=== PATIENT | female | born 1995 | race Caucasian/White ===

== ENCOUNTER 2019-03-22 18:12 | Emergency (ER) | payer OTHER, SELFPAY ==
--- NOTE | 2019-03-22 18:26 | DI.RAD.S_ITS ---
PROCEDURE: XR WRIST RT MIN 3V INDICATIONS: pain, no definite injury, over lateral wrist, distal forearm TECHNIQUE: 3 views of the wrist were acquired. COMPARISON: None. FINDINGS: Bones: No fractures or dislocations. No suspicious bony lesions. Soft tissues: No suspicious soft tissue calcifications. IMPRESSION: No fracture or dislocation. Dictated by: Terri Jensen M.D. on 03/22/2019 at 20:41 Approved by: Terri Jensen M.D. on 03/22/2019 at 20:41
[2019-03-22 18:29] VITALS: BP 133/92; PULSE 97; RESP 18; TEMP 36.8; O2SAT 97; BMI 28.7
--- NOTE | 2019-03-23 00:48 | ED.UPPEXIN ---
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 She denies any direct or forceful trauma. She states that any use of her wrist exacerbates the pain. She denies numbness, tingling or weakness. She denies history of the same. MD complaint: injury to: right, forearm and wrist Onset (ago): hour(s) Other injuries: none Handedness: right Place: work Severity: moderate Relieving factors: rest Exacerbating factors: movement of extremity Context: other Associated symptoms: denies other symptoms Treatments prior to arrival: cold therapy and NSAIDS Related Data Previous Rx's Medication Instructions Recorded cyclobenzaprine 10 mg tablet 10 mg PO BEDTIME #30 tab 12/23/18 Allergies Allergy/AdvReac Type Severity Reaction Status Date / Time No Known Drug Allergies Allergy Verified 03/22/19 18:28 Review of Systems Constitutional Denies chills, Denies fever(s), Denies lethargy and Denies weakness Eyes Denies change in vision, Denies eye discharge, Denies irritation and Denies loss of vision ENT Ears, Nose, Mouth, and Throat: Denies change in voice, Denies neck pain and Denies sore throat Cardiovascular Denies chest pain, Denies irregular heart rhythm, Denies lightheadedness, Denies palpitations, Denies dyspnea, Denies dyspnea on exertion and Denies orthopnea Respiratory Denies cough, Denies dyspnea, Denies dyspnea on exertion and Denies wheezing Gastrointestinal Gastrointestinal: Denies abdominal pain, Denies change in bowel habits, Denies diarrhea, Denies nausea and Denies vomiting Genitourinary Denies hematuria, Denies flank pain, Denies urinary incontinence and Denies urinary urgency Musculoskeletal Reports limited range of motion and Denies neck pain Integumentary/Breasts Denies pruritus, Denies erythema, Denies rash and Denies wounds Neurologic Denies confusion, Denies loss of vision and Denies weakness Psychiatric Denies anxiety, Denies confusion, Denies depression, Denies homicidal ideation and Denies suicidal ideation Endocrine Denies palpitations Hematologic/Lymphatic Denies easy bruising Allergic/Immunologic Denies wheezing PFSH Social History Smoking Status: Former smoker alcohol intake: current Social History Smoking Status: Former smoker alcohol intake: current Exam Narrative Exam Narrative: GEN: AOx3 and in mild distress EYES: Pupils are equal, round, and reactive to light and accommodation. Extraoccular muscles are intact bilaterally. There is no subconjunctival hemorrhage or exudate. CHEST: Lungs are clear to auscultation bilaterally and free of wheezes, rales, or rhonchi. Heart rate is regular rhythm, there are no murmurs, clicks, rubs, or gallops. There is no chest wall tenderness. ABD: Abdomen is soft and nontender. There is no guarding or rebound. Bowel sounds are normal in all 4 quadrants. There is no mass or organomegaly. EXT: Full but painful range of motion of the patient's right wrist, flexion and extension causes pain to radiate up the ulnar aspect of the forearm along the distal third. No obvious defornmity SKIN: Warm, pink, and dry. No erythema or rash Initial Vital Signs Initial Vital Signs: Vital Signs Temperature 98.3 F 03/22/19 18:29 Pulse Rate 97 H 03/22/19 18:29 Respiratory Rate 18 03/22/19 18:29 Blood Pressure 133/92 H 03/22/19 18:29 Pulse Oximetry 97 03/22/19 18:29 Procedures Orthopedic Splinting/Casting Injury #1: Side: right Upper Extremity Injury Location: wrist Upper Extremity Immobilizer: volar splint Post splinting neuro exam: intact Post splinting vascular exam: intact Placed by: Nursing Course Orders Ordered: ED Orders 03/22/19 18:26 XR wrist RT min 3V Stat Vital Signs - 8 hr 03/22/19 18:29 Temperature 98.3 F Pulse Rate 97 H Respiratory Rate 18 Blood Pressure 133/92 H Pulse Oximetry 97 MDM - Extremity Injury (Upper) Imaging Data Wrist Xray: Radiologist's impression: [address] [address] XRay Report Signed Patient: Ivanna [facility]#: [id number] : 1995Acct:[id number] Age/Sex: 23 / FDate of Service: 03/22/19 Loc: ED Accession Number: [id number] Procedure: XR wrist RT min 3V Ordering Provider: Gonzalo Ruelas D.O. PROCEDURE: XR WRIST RT MIN 3V INDICATIONS: pain, no definite injury, over lateral wrist, distal forearm TECHNIQUE: 3 views of the wrist were acquired. COMPARISON: None. FINDINGS: Bones: No fractures or dislocations. No suspicious bony lesions. Soft tissues: No suspicious soft tissue calcifications. IMPRESSION: No fracture or dislocation. Dictated by: Terri Jensen M.D. on 03/22/2019 at 20:41 Approved by: Terri Jensen M.D. on 03/22/2019 at 20:41 Discharge Plan Departure Patient Disposition: Home Clinical Impression: Sprain and strain of wrist Discharge Date/Time: 03/22/19 19:01 Interventions: ED Discharge Assessment Last Done: 03/22/19 19:01 Instructions: DI for Wrist Sprain Activity Restrictions/Additional Instructions: *You have been diagnosed with [ Right wrist tendinopathy or sprain ] *What to do: *Take medications as directed: Tylenol or Motrin for pain *Follow up with your primary care provider in 2-3 days, call for an appointment. Let them know you were seen in the Emergency Department and that we ask that you be seen in follow up * this is likely an inflammatory condition of muscles or tendons in her wrist and forearm. It is important to avoid repetitive motions and lifting, pushing or pulling greater than 30 lb for the next 5-7 days. He will need to see your primary care provider for a full clearance to return to work *Return to ER if you should have any new, worsening or concerning symptoms, such as [ ] Prescriptions: No Action cyclobenzaprine 10 mg tablet 10 mg PO BEDTIME Qty: 30 RF: 0
== END 2019-03-22 19:01 | disposition home or self-care (01) ==
PROVIDERS: Emergency Provider Emergency Medicine
DX: S63.501A Unspecified sprain of right wrist, initial encounter (principal); Y99.0 Civilian activity done for income or pay
CPT/HCPCS: 29260; 73110; 99282; 99283

== ENCOUNTER 2019-05-14 21:54 | Emergency (ER) | payer OTHER, SELFPAY ==
[2019-05-14 22:04] VITALS: BP 112/68; PULSE 80; RESP 20; O2SAT 98
--- NOTE | 2019-05-14 22:50 | ED.DENTAL ---
HPI - Dental/Oral General Chief complaint: Dental/Oral Stated complaint: TOOTH INFECTION Time Seen by Provider: 05/14/19 22:50 Source: patient Mode of arrival: ambulatory Limitations: no limitations History of Present Illness HPI Narrative: The patient developed bleeding from the left upper gum after eating dinner, about 6:00 p.m. she had nothing for dinner that would an abrasive. She is sure she not herself with a dinner utensil. She has no dental pain now. She has had no recent dental pain. She has had no facial swelling. She has no bleeding issues. She has no medical problems. Related Data Previous Rx's Medication Instructions Recorded cyclobenzaprine 10 mg tablet 10 mg PO BEDTIME #30 tab 12/23/18 Allergies Allergy/AdvReac Type Severity Reaction Status Date / Time No Known Drug Allergies Allergy Verified 03/22/19 18:28 Review of Systems Constitutional Denies body ache(s), Denies chills and Denies fever(s) Comments: No recent illness ENT Ears, Nose, Mouth, and Throat: Denies dental pain, Denies epistaxis, Denies mouth lesions and Denies mouth pain Comments: Bleeding as described in HPI Cardiovascular Denies dyspnea Respiratory Denies dyspnea Hematologic/Lymphatic Denies easy bleeding and Denies easy bruising PFSH Medical History (Updated 05/14/19 @ 23:02 by Darwin Malcolm MD) No active medical problems (Acute) Surgical History (Updated 05/14/19 @ 23:02 by Darwin Malcolm MD) No pertinent past surgical history (Acute) Social History Smoking Status: Former smoker alcohol intake: current Social History Smoking Status: Former smoker alcohol intake: current Exam Initial Vital Signs Initial Vital Signs: Vital Signs Pulse Rate 80 05/14/19 22:04 Respiratory Rate 20 05/14/19 22:04 Blood Pressure 112/68 05/14/19 22:04 Pulse Oximetry 98 05/14/19 22:04 Const General: cooperative and well developed Nutritional Appearance: well nourished Orientation: alert, awake and oriented x3 HENMT Teeth and gingiva: dentition normal (Small abrasion on the gum above tooth 13. No dental tenderness. no edema. ), gingiva normal and no caries Throat: posterior oropharynx normal Neck Neck: No anterior neck swelling and No lymphadenopathy Skin General: no rashes or lesions noted Course Course Narrative: There is a small abrasion on the left upper gum, no significant injury seen. There is no evidence of active bleeding, or infection. Oropharynx is otherwise normal. Vital Signs - 8 hr 05/14/19 22:04 Pulse Rate 80 Respiratory Rate 20 Blood Pressure 112/68 Pulse Oximetry 98 Discharge Plan Departure Patient Disposition: Home Clinical Impression: Abrasion of gum Qualifiers: Encounter type: initial encounter Qualified Code(s): S00.512A - Abrasion of oral cavity, initial encounter Discharge Date/Time: 05/14/19 23:00 Instructions: DI for Abrasion Activity Restrictions/Additional Instructions: The visible injury is small. If there is recurrence of bleeding, apply gauze like it did previously. Return the ER if you have sustained bleeding greater than 1 hour. Prescriptions: No Action cyclobenzaprine 10 mg tablet 10 mg PO BEDTIME Qty: 30 RF: 0
== END 2019-05-14 23:00 | disposition home or self-care (01) ==
PROVIDERS: Emergency Provider Emergency Medicine
DX: S00.512A Abrasion of oral cavity, initial encounter (principal); W27.4XXA Contact with kitchen utensil, initial encounter
CPT/HCPCS: 99282

== ENCOUNTER 2019-07-31 20:57 | Emergency (ER) | payer OTHER, SELFPAY ==
[2019-07-31 21:00] VITALS: BP 138/86; PULSE 87; RESP 16; TEMP 36.5; O2SAT 99; BMI 27.4
--- NOTE | 2019-07-31 21:02 | DI.RAD.S_ITS ---
PROCEDURE: XR FOOT LT MIN 3V INDICATIONS: left foot conor TECHNIQUE: 3 views of the foot were acquired. COMPARISON: None. FINDINGS: Bones: No fractures or dislocations. No suspicious bony lesions. Soft tissues: No tibiotalar joint effusion. Achilles tendon appears normal. IMPRESSION: No acute fracture. No osseous lesion. If clinical suspicion and/or symptoms persist, further assessment with repeat plainfilms, or advanced imaging (e.g., CT, MRI, or bone scan) may be helpful for further assessment. Dictated by: Diana Dumont M.D. on 07/31/2019 at 21:33 Approved by: Diaan Dumont M.D. on 07/31/2019 at 21:33
--- NOTE | 2019-07-31 21:04 | PC.NURSE ---
pt denies specific injury
--- NOTE | 2019-07-31 21:30 | ED_ITS ---
HPI - Extremity Injury (Lower) General Chief Complaint: Extremity Injury, Lower Stated Complaint: thinks broke her left foot Time Seen by Provider: 07/31/19 21:25 Source: patient Mode of arrival: Ambulatory Limitations: no limitations History of Present Illness HPI Narrative: 24-year-old female here for evaluation of left foot/great toe injury. She states that she woke up today with hurting. She walked on it all day and now it hurts more. Has not tried anything for prior to arrival. No specific trauma. Related Data Previous Rx's Medication Instructions Recorded cyclobenzaprine 10 mg tablet 10 mg PO BEDTIME #30 tab 12/23/18 Allergies Allergy/AdvReac Type Severity Reaction Status Date / Time No Known Drug Allergies Allergy Verified 03/22/19 18:28 Review of Systems Musculoskeletal Musculoskeletal: Denies tingling Comments: Left foot/big toe pain Integumentary/Breasts Skin/Breast: Denies lesions and Denies rash Neurologic Neurologic: Denies tingling Hematologic/Lymphatic Hematologic/Lymphatic: Denies easy bleeding and Denies easy bruising Patient History Medical History (Reviewed 08/01/19 @ 01:44 PDT by Mika Bell DO) No active medical problems (Acute) Surgical History (Updated 05/14/19 @ 23:02 by Darwin Malcolm MD) No pertinent past surgical history (Acute) Social History (Reviewed 08/01/19 @ 01:44 PDT by Mika Bell DO) Smoking Status: Former smoker alcohol intake: current alcohol intake frequency: a few times a month Substance Use Type: does not use Exam Initial Vital Signs Initial Vital Signs: Vital Signs Temperature 97.7 F 07/31/19 21:00 Pulse Rate 87 07/31/19 21:00 Respiratory Rate 16 07/31/19 21:00 Blood Pressure 138/86 07/31/19 21:00 Pulse Oximetry 99 07/31/19 21:00 Const General: cooperative, comfortable and well developed HENDC Head: normal to inspection and normocephalic Resp Effort & Inspection: normal respiratory effort Cardio Pulses: dorsalis pedis present on the left Skin Lesions: no lesions Rashes: no rashes Neuro General: alert and awake Gait: normal gait Sensory Exam: no sensory deficits noted Extrem Other: She does have tenderness to palpation along the MTP joint of the right great toe. There is some mild swelling of the area. Psych Appearance: grossly normal and well kempt Course Orders Ordered: ED Orders 07/31/19 21:02 XR foot LT min 3V Stat Vital Signs Vital signs: Vital Signs - 8 hr 07/31/19 21:00 Temperature 97.7 F Pulse Rate 87 Respiratory Rate 16 Blood Pressure 138/86 Pulse Oximetry 99 MDM - Extremity Injury (Lower) Imaging Data Foot x-ray: Radiologist's impression: [address] [address] XRay Report Signed Patient: Ivanna Love MMR#: [id number] : 1995Acct:[id number] Age/Sex: 24 / FDate of Service: 07/31/19 Loc: ED Accession Number: [id number] Procedure: XR foot LT min 3V Ordering Provider: Mika Bell D.O. PROCEDURE: XR FOOT LT MIN 3V INDICATIONS: left foot conor TECHNIQUE: 3 views of the foot were acquired. COMPARISON: None. FINDINGS: Bones: No fractures or dislocations. No suspicious bony lesions. Soft tissues: No tibiotalar joint effusion. Achilles tendon appears normal. IMPRESSION: No acute fracture. No osseous lesion. If clinical suspicion and/or symptoms persist, further assessment with repeat plainfilms, or advanced imaging (e.g., CT, MRI, or bone scan) may be helpful for further assessment. Dictated by: Diana Dumont M.D. on 07/31/2019 at 21:33 Approved by: Diana Dumont M.D. on 07/31/2019 at 21:33 [facility] Narrative Medical decision making narrative: Patient is neurovascularly intact. X-ray showed no signs of fracture. Exam is not consistent with gout or septic joint or cellulitis. Patient denies any specific trauma. Will send home with crutches and a hard sole shoe for comfort. She was given return precautions and follow-up instructions. She expressed understanding agreement plan Discharge Plan Departure Patient Disposition: Home Clinical Impression: Foot pain, left Discharge Date/Time: 07/31/19 22:05 Instructions: How to Use Crutches, How To Perform RICE (Rest, Ice, Compress, Elevate) Activity Restrictions/Additional Instructions: Use the crutches in the hard sole shoe as needed. You can walk on your foot however I recommend that you use the hard sole shoe. You can take Tylenol and/or ibuprofen for any discomfort. Return to the emergency department for any new or worsening symptoms Prescriptions: No Action cyclobenzaprine 10 mg tablet 10 mg PO BEDTIME Qty: 30 RF: 0 Stand Alone Forms: Work Release Note
== END 2019-07-31 22:05 | disposition home or self-care (01) ==
PROVIDERS: Emergency Provider Emergency Medicine
DX: M79.672 Pain in left foot (principal)
CPT/HCPCS: 73630; 99282; 99283

== ENCOUNTER 2020-02-08 16:17 | Emergency (ER) | payer OTHER, SELFPAY ==
[2020-02-08 16:26] VITALS: BP 139/88; PULSE 119; RESP 22; TEMP 36.6; O2SAT 99
--- NOTE | 2020-02-08 17:33 | ED.BACK ---
HPI - Back Pain/Injury <SEGUNDO Castaneda - Last Filed: 02/08/20 21:03> General Chief Complaint: Back Pain/Injury Stated Complaint: LOW BACK PAIN Time Seen by Provider: 02/08/20 16:51 Source: patient History of Present Illness HPI Narrative: 24-year-old female presents to the emergency department complaining of left-sided back pain. 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 She states ?it felt like I back seized up ?. Patient states this has happened before in the past but was feeling better until this incident. She states the pain is worse when she make certain movements such as twisting or bending. Patient denies taking any medications for this at this time. She arrives with a form to be filled out by her work. Patient denies any numbness, tingling, fevers, chills, nausea, vomiting, diarrhea, dysuria, loss of bowel or bladder control, or any other concerns. Related Data Previous Rx's Medication Instructions Recorded cyclobenzaprine 10 mg tablet 10 mg PO BEDTIME #30 tab 12/23/18 cyclobenzaprine 10 mg PO TID PRN #14 tab 02/08/20 Allergies Allergy/AdvReac Type Severity Reaction Status Date / Time No Known Drug Allergies Allergy Verified 03/22/19 18:28 Review of Systems <SEGUNDO Castaneda - Last Filed: 02/08/20 21:03> Review of Systems Narrative: REVIEW OF SYSTEMS: GENERAL: Denies fever or chills. HENT: No head trauma. EYES: No double vision or vision loss. CARDIOVASCULAR: No chest pain or syncope. RESPIRATORY: No shortness of breath or cough. GASTROINTESTINAL: No nausea, vomiting, diarrhea, or constipation. GENITOURINARY: No flank pain or dysuria. MUSCULOSKELETAL: Complains of reports left-sided lumbar pain, see HPI. INTEGUMENTARY: No rash, lesions, or pruritus. NEURO: No numbness, tingling. Patient History <SEGUNDO Castaneda - Last Filed: 02/08/20 21:03> Medical History No active medical problems (Acute) Surgical History No pertinent past surgical history (Acute) Social History Smoking Status: Former smoker alcohol intake: current Smoking Status: Former smoker alcohol intake frequency: a few times a month Substance Use Type: does not use Exam <SEGUNDO Castaneda - Last Filed: 02/08/20 21:03> Initial Vital Signs Initial Vital Signs: Vital Signs Temperature 97.9 F 02/08/20 16:26 Pulse Rate 119 H 02/08/20 16:26 Respiratory Rate 22 02/08/20 16:26 Blood Pressure 139/88 02/08/20 16:26 Pulse Oximetry 99 02/08/20 16:26 PHYSICAL EXAMINATION: GENERAL: Well groomed, alert, and cooperative. Answers questions promptly and appropriately. Vital signs noted. HENT: Normocephalic, atraumatic. EYES: Symmetrical, sclera white, no periorbital swelling. CARDIOVASCULAR: Regular rate. RESPIRATORY: Normal respiratory rate, trachea midline, airway patent. No stridor, nasal flaring or accessory muscle use. Lungs are clear in all son. MUSCULOSKELETAL: Tenderness to left lower lumbar area which correlates with upper aspect of left gluteus ced. No spinal tenderness. Patient is equal strength to lower extremities bilaterally. Normal gait and coordination. Equal tone and mass bilaterally. EXTREMITIES: CMS intact. No pedal edema. SKIN: Warm, dry, soft, appropriate color for ethnicity. No lesions, rashes, or wounds. NEURO: Alert and Oriented X 3. No sensory deficits. PSYCH: Appropriate affect and mood. <Nohelia Acosta MD - Last Filed: 02/08/20 21:07> Initial Vital Signs Initial Vital Signs: Vital Signs Temperature 97.9 F 02/08/20 16:26 Pulse Rate 119 H 02/08/20 16:26 Respiratory Rate 22 02/08/20 16:26 Blood Pressure 139/88 02/08/20 16:26 Pulse Oximetry 99 02/08/20 16:26 Course <SEGUNDO Castaneda - Last Filed: 02/08/20 21:03> Course Course Narrative: Patient was given an IM dose of Toradol, reports improvement of pain. Patient's individual work related L and I form was filled out per request. Orders Ordered: Discontinued Medications Ketorolac Tromethamine (Toradol) 30 mg IM NOW ONE Stop: 02/08/20 17:29 Last Admin: 02/08/20 17:58 Dose: 30 mg Documented by: RODOLFO Vital Signs Vital signs: Vital Signs - 8 hr 02/08/20 16:26 02/08/20 18:10 Temperature 97.9 F Pulse Rate 119 H 78 Respiratory Rate 22 14 Blood Pressure 139/88 Blood Pressure [Right Arm] 132/82 Pulse Oximetry 99 100 <Nohelia Acosta MD - Last Filed: 02/08/20 21:07> Orders Ordered: Discontinued Medications Ketorolac Tromethamine (Toradol) 30 mg IM NOW ONE Stop: 02/08/20 17:29 Last Admin: 02/08/20 17:58 Dose: 30 mg Documented by: RODOLFO Vital Signs Vital signs: Vital Signs - 8 hr 02/08/20 16:26 02/08/20 18:10 Temperature 97.9 F Pulse Rate 119 H 78 Respiratory Rate 22 14 Blood Pressure 139/88 Blood Pressure [Right Arm] 132/82 Pulse Oximetry 99 100 [facility] - Back Pain/Injury <SEGUNDO Castaneda - Last Filed: 02/08/20 21:03> Medical Records Attestation: I reviewed the patient's medical records. Lab Data Attestation: I reviewed the patient's lab results. [facility] Narrative Medical decision making narrative: 24-year-old female with a history of previous lumbar strain, presents emergency department for left lumbar pain after lifting a 300 lb resident. Patient reported pain and spasms. I suspect patient's symptoms today are due to a recurrence lumbar strain with associated spasm due to description of pain, examination, and lack of spinal bony tenderness or direct trauma. There is no indication for x-ray due to these findings. No concern for nerve impingement due to lack of numbness and tingling, no limb weakness. Patient was given a muscle relaxer, she was encouraged to take NSAIDs for the next 3 days. Patient was given 2 days off of work for rest. She was encouraged to apply heat and perform gentle stretches. Patient was encouraged to follow up with her PCP. Patient agreed to plan of care verbalized understanding. Discharge Plan Departure Patient Disposition: Home Clinical Impression: Strain of lumbar region Qualifiers: Encounter type: initial encounter Qualified Code(s): S39.012A - Strain of muscle, fascia and tendon of lower back, initial encounter Discharge Date/Time: 02/08/20 18:15 Instructions: DI for Muscle Strain, DI for Back Spasm Activity Restrictions/Additional Instructions: Thank you for entrusting me with your care today. As discussed, your symptoms are most likely caused by a muscle strain and spasm. I prescribed a muscle relaxer, please take this as needed. It will cause drowsiness, do not drive with this medication. You medication was sent to [facility] in [place]. Additionally, I recommend taking 400 mg of ibuprofen every 8 hours for the next 3 days to help with pain inflammation. Use heat, ice, and gentle stretches to help with pain. Follow-up with your primary care provider or L&I specialist. Return emergency department for new or worsening symptoms such as severe pain, fevers, uncontrollable vomiting, and the concerns. Prescriptions: New cyclobenzaprine 10 mg tablet 10 mg PO TID PRN (Reason: muscle spasm) Qty: 14 RF: 0 No Action cyclobenzaprine 10 mg tablet 10 mg PO BEDTIME Qty: 30 RF: 0 Stand Alone Forms: Work Release Note <Nohelia Acosta MD - Last Filed: 02/08/20 21:07> Cosign ED Attending Cosignature Attestation: I was immediately available in the department for consultation throughout this patient's visit. I agree with documentation as above. Nohelia Acosta MD
[2020-02-08] MEDS: KETOROLAC 60 MG/2 ML VIAL 30 MG IM (17:58)
[2020-02-08 18:10] VITALS: BP 132/82; PULSE 78; RESP 14; O2SAT 100
== END 2020-02-08 18:15 | disposition home or self-care (01) ==
PROVIDERS: Emergency Provider Nurse Practitioner
DX: S39.012A Strain of muscle, fascia and tendon of lower back, initial encounter (principal); X50.0XXA Overexertion from strenuous movement or load, initial encounter; Y99.0 Civilian activity done for income or pay
CPT/HCPCS: 96372; 99283; J1885

== ENCOUNTER 2020-05-19 17:48 | Emergency (ER) | payer OTHER, SELFPAY ==
[2020-05-19 18:17] VITALS: BP 113/80; PULSE 80; RESP 14; TEMP 36.6; O2SAT 100; BMI 29.2
--- NOTE | 2020-05-19 18:27 | ED.BACK ---
HPI - Back Pain/Injury General Chief Complaint: Back Pain/Injury Stated Complaint: BACK INJURY BACK PAIN HARD TO WALK Time Seen by Provider: 05/19/20 18:27 Source: patient Mode of arrival: Ambulatory Limitations: no limitations History of Present Illness HPI Narrative: 24F nonsmoker with chronic episodes of back pain due to a work related injury over a year ago. She has had an ongoing L&I claim for this. She presents tonight because she was unable to make it through her shift due to the pain. She states it is just like it has been multiple prior times and is largely in her left lower back with occasional radiation down her left leg. She denies any new obvious injury. She states it is worse with she moves and improves with rest. She denies trouble controlling bowel or bladder. She denies extremity weakness. She denies footdrop or groin numbness. She's had no fever or chills. She does sometimes have some tingling in her left leg. MD Complaint: back pain Onset (ago): month(s) Duration: intermittent Similar Symptoms Previously: Yes Location: lumbar spine and left lower back Severity: moderate Quality: sharp, aching, tingling and spasming Radiation: left leg Relieving factors: immobilization Exacerbating factors: movement and walking Context: unknown Associated symptoms: difficulty walking Related Data Previous Rx's Medication Instructions Recorded cyclobenzaprine 10 mg tablet 10 mg PO BEDTIME #30 tab 12/23/18 cyclobenzaprine 10 mg PO TID PRN #14 tab 02/08/20 cyclobenzaprine 10 mg PO TID PRN #14 tab 05/19/20 prednisone 20 mg PO DAILY #5 tab 05/19/20 Allergies Allergy/AdvReac Type Severity Reaction Status Date / Time No Known Drug Allergies Allergy Verified 03/22/19 18:28 Review of Systems Constitutional Constitutional: Denies chills, Denies fatigue, Denies fever(s), Denies frequent falls, Denies lethargy and Denies weakness Eyes Eyes: Denies change in vision, Denies eye discharge, Denies irritation and Denies loss of vision ENT Ears, Nose, Mouth, and Throat: Denies change in voice, Denies dizziness, Denies neck pain, Denies sore throat and Denies throat swelling Cardiovascular Cardiovascular: Denies chest pain, Denies irregular heart rhythm, Denies lightheadedness, Denies palpitations, Denies dyspnea, Denies dyspnea on exertion and Denies orthopnea Respiratory Respiratory: Denies cough, Denies dyspnea, Denies dyspnea on exertion and Denies wheezing Gastrointestinal Gastrointestinal: Denies abdominal pain, Denies change in bowel habits, Denies diarrhea, Denies nausea and Denies vomiting Musculoskeletal Musculoskeletal: Reports back pain, Denies neck pain and Denies numbness Integumentary/Breasts Skin/Breast: Denies pruritus, Denies erythema, Denies rash and Denies wounds Neurologic Neurologic: Denies behavioral changes, Denies confusion, Denies dizziness, Denies frequent falls, Denies loss of vision, Denies numbness and Denies weakness Psychiatric Psychiatric: Denies anxiety, Denies behavioral changes, Denies confusion, Denies depression, Denies homicidal ideation and Denies suicidal ideation Endocrine Endocrine: Denies fatigue, Denies flushing and Denies palpitations Hematologic/Lymphatic Hematologic/Lymphatic: Denies easy bruising Allergic/Immunologic Allergic/Immunologic: Denies urticaria, Denies throat swelling and Denies wheezing Patient History Medical History No active medical problems (Acute) Surgical History No pertinent past surgical history (Acute) Social History Smoking Status: Former smoker alcohol intake: current Smoking Status: Former smoker alcohol intake frequency: 0-2 drinks per day Substance Use Type: does not use Exam Narrative Exam Narrative: GENERAL: [24] year old patient appears stated age. Well-nourished, well-developed patient, in mild distress. Rubbing her left lower back, walked in under her own power HEAD: Atraumatic. Normocephalic. EYES: Pupils equal round and reactive. Extraocular motions intact. No scleral icterus. No injection or drainage. ENT: Nose without bleeding, purulent drainage. Throat without erythema, tonsillar hypertrophy or exudate. Airway patent. NECK: Trachea midline. Non tender CARDIOVASCULAR: Regular rate and rhythm without murmurs, gallops, or rubs. RESPIRATORY: Clear to auscultation. Breath sounds equal bilaterally. No wheezes, rales, or rhonchi. GASTROINTESTINAL: Abdomen soft, non-tender, nondistended. EXTREMITIES: No edema or joint tenderness. BACK: filter press tender head but free of any obvious external abnormalities. Patient exam notes decreased range of motion and muscle spasm, but no CVA tenderness, or vertebral point tenderness. There are no symptoms of cauda equina such as saddle anesthesia, and decreased reflexes, decreased sensation or strength. NEURO: AOx3. SKIN: No rash or erythema of visible areas Initial Vital Signs Initial Vital Signs: Vital Signs Temperature 98 F 05/19/20 18:17 Pulse Rate 80 05/19/20 18:17 Respiratory Rate 14 05/19/20 18:17 Blood Pressure 113/80 05/19/20 18:17 Pulse Oximetry 100 05/19/20 18:17 Course Orders Ordered: Discontinued Medications Cyclobenzaprine HCl (Flexeril 10 Mg Prepack) 1 bottle MISC SEEINSTR ONE Stop: 05/19/20 21:11 Last Admin: 05/19/20 21:23 Dose: 1 bottle Documented by: SADIE Ketorolac Tromethamine (Toradol) 60 mg IM NOW ONE Stop: 05/19/20 21:11 Last Admin: 05/19/20 21:24 Dose: 60 mg Documented by: SADIE Prednisone (Deltasone) 40 mg PO NOW ONE Stop: 05/19/20 21:11 Last Admin: 05/19/20 21:23 Dose: 40 mg Documented by: SADIE Vital Signs Vital signs: Vital Signs - 8 hr 05/19/20 21:38 05/19/20 21:52 05/19/20 21:57 Pulse Rate 77 76 77 Respiratory Rate Blood Pressure 105/58 L 115/74 124/70 Pulse Oximetry 100 98 05/19/20 22:03 Pulse Rate 75 Respiratory Rate 16 Blood Pressure 122/72 Pulse Oximetry 99 Discharge Plan Departure Patient Disposition: Home Clinical Impression: Chronic low back pain Discharge Date/Time: 05/19/20 22:05 Instructions: DI for Back Pain With Sciatica Activity Restrictions/Additional Instructions: *You have been diagnosed with [acute on chronic low back pain with radiculopathy] *What to do: *Take medications as directed *Follow up with your primary care provider in 2-3 days, call for an appointment. Let them know you were seen in the Emergency Department and that we ask that you be seen in follow up *Return to ER if you should have any new, worsening or concerning symptoms, such as [loss of ability to control bowel or bladder, lower extremity weakness, other bothersome symptoms] Prescriptions: New cyclobenzaprine 10 mg tablet 10 mg PO TID PRN (Reason: muscle spasm) Qty: 14 RF: 0 prednisone 20 mg tablet 20 mg PO DAILY Qty: 5 RF: 0 No Action cyclobenzaprine 10 mg tablet 10 mg PO BEDTIME Qty: 30 RF: 0 cyclobenzaprine 10 mg tablet 10 mg PO TID PRN (Reason: muscle spasm) Qty: 14 RF: 0 Referrals: [facility] [Outside] [facility] [Outside]
[2020-05-19] MEDS: CYCLOBENZAPRINE 10 MG PREPACK 1 BOTTLE MISC (21:23)
[2020-05-19] MEDS: predniSONE 20 MG TABLET 40 MG PO (21:23)
[2020-05-19] MEDS: KETOROLAC 60 MG/2 ML VIAL IM (21:24)
--- NOTE | 2020-05-19 21:37 | PC.NURSE ---
patient recieved toradol IM and stated I feel lightheaded and the room is closing in. Patient placed supine on the stretcher and placed on monitor. HR initially 55 with pressure of 88/58. Provider notified, no orders received.
[2020-05-19 21:38] VITALS: BP 105/58; PULSE 77; O2SAT 100
--- NOTE | 2020-05-19 21:40 | PC.NURSE ---
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 States nothing really started this episode, it is just ongoing for months. reports today felt tingling down left leg.
[2020-05-19 21:52] VITALS: BP 115/74; PULSE 76; O2SAT 98
[2020-05-19 21:57] VITALS: BP 124/70; PULSE 77
--- NOTE | 2020-05-19 21:57 | PC.NURSE ---
dangling legs over the edge of the bed sitting up. Pt states she feels a little bit dizzy still. Spouse in room and bedside.
[2020-05-19 22:03] VITALS: BP 122/72; PULSE 75; RESP 16; O2SAT 99
== END 2020-05-19 22:05 | disposition home or self-care (01) ==
PROVIDERS: Emergency Provider Emergency Medicine
DX: M54.5 Low back pain (principal); G89.29 Other chronic pain
CPT/HCPCS: 96372; 99283; J1885